=== PATIENT | male | born 1990 | race Caucasian/White ===

== ENCOUNTER 2017-11-22 06:03 | Emergency (ER) | payer BC ==
[~2017-11-22] VITALS: Ht 172.7 cm; Wt 93.0 kg
[2017-11-22 06:20] VITALS: BP 169/90
[2017-11-22] MEDS ORDERED: LORazepam Inj 2mg/ml 1ml IV ONE ×2 (06:30→07:00)
[2017-11-22 06:56] LABS: EOSINOPHILS % (AUTO) 0.1 % (0.0-3.0); HEMATOCRIT 49.3 % (42.0-52.0); HEMOGLOBIN 16.8 G/DL (14.2-18.0); LYMPHOCYTES % (AUTO) 17.9 % (20.0-45.0); MEAN CORPUSCULAR VOLUME 91 FL (80-99); MONOCYTES % (AUTO) 8.2 % (1.0-10.0); NEUTROPHILS % (AUTO) 72.8 % (45.0-75.0); PLATELET COUNT 222 K/UL (150-450); RED BLOOD COUNT 5.42 M/UL (4.70-6.10); RED CELL DISTRIBUTION WIDTH 10.9 % (11.6-14.8); WHITE BLOOD COUNT 12.6 K/UL (4.8-10.8)
[2017-11-22 07:06] LABS: ANION GAP 11 mmol/L (5-15); BLOOD UREA NITROGEN 15 mg/dL (7-18); CALCIUM 9.8 MG/DL (8.5-10.1); CARBON DIOXIDE 27 MMOL/L (21-32); CHLORIDE 101 MMOL/L (98-107); CREATININE 1.4 MG/DL (0.55-1.30); POTASSIUM 3.8 MMOL/L (3.5-5.1); SODIUM 139 MMOL/L (136-145)
--- NOTE | 2017-11-22 07:13 | Emergency Room Report ---
History of Present Illness General Chief Complaint: Substance Abuse Source: Patient Present Illness HPI Patient presents emergency department today with anxiety. Patient states that he is feeling very anxious. He has been taking lots of supplements over-the- counter. He has been taking Kratom. 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 He also has been taking testosterone because he has a history of low testosterone per his report. He denies any fever chest pain or shortness of breath. He states that he feels very anxious and he is tearful. Patient apparently was pacing the room. I did not sleep at all last night. Patient appears very hyper. Patient states that he felt that he was hypoglycemic very anxious all night throughout the night and has been drinking a lot of sugar. He denies any drug use.No other modifying factors. No other associated signs and symptoms. No other complaints were noted. Allergies: Coded Allergies: No Known Allergies (Unverified , 11/22/17) Patient History Past Medical History: other - anxiety Past Surgical History: none Pertinent Family History: none Social History: Reports: drug use - recreational drug use, history of drug abuse in the past Reviewed Nursing Documentation: PMH: Agreed; PSxH: Agreed Nursing Documentation-PMH Past Medical History: No History, Except For Hx Diabetes: No - hypoglycemia Hx Neurological Problems: Yes - anxiety Review of Systems All Other Systems: negative except mentioned in HPI Physical Exam Vital Signs Date Time Temp Pulse Resp B/P (MAP) Pulse Ox O2 Delivery O2 Flow Rate FiO2 11/22/17 06:06 100.6 144 18 165/87 Room Air 100.6 11/22/17 06:20 94 Sp02 EP Interpretation: reviewed, normal General Appearance: alert, other - very anxious Head: atraumatic Eyes: bilateral eye normal inspection ENT: normal ENT inspection, hearing grossly normal, normal voice Neck: normal inspection, full range of motion, supple, no bony tend Respiratory: normal inspection, lungs clear, normal breath sounds, no respiratory distress, no retraction, no wheezing Cardiovascular #1: regular rate, rhythm, no edema Gastrointestinal: normal inspection, normal bowel sounds, non tender, soft, no guarding, no hernia Genitourinary: no CVA tenderness Musculoskeletal: normal inspection, back normal, normal range of motion Neurologic: normal inspection, alert, responsive, speech normal Psychiatric: no suicidal/homicidal ideation, anxious, other - tearful Skin: normal inspection, normal color, no rash Medical Decision Making Diagnostic Impression: Primary Impression: Altered mental state Additional Impression: Substance abuse ER Course Patient presents emergency department today with altered mental status anxiety and has been taking over the counter medication and recreational drugs. Differential considerations include electrolyte abnormality, infectious process , stress reaction just to name a few.Given the severity of the patient's presentation I felt this is a highly complex patient. This patient required extensive workup. Laboratory workup was not impressive except for slightly elevated white blood cell count. Patient also had mild fever as well as tachycardia. Therefore patient was given fluids he was given Ativan for sedation he is monitored emergency department. I first I wanted to admit him to the hospital but then he became more awake declined and actually had normal vital signs time of discharge. Given patient's vital signs normalized I felt that his low-grade temperature was likely secondary to some panel mimics and that his symptoms could be secondary drug abuse. He was advised to stop abusing drugs return the ER for any worsen symptoms as needed. Patient voiced understanding. Labs Test 11/22/17 06:34 11/22/17 08:16 11/22/17 08:50 White Blood Count 12.6 K/UL (4.8-10.8) Red Blood Count 5.42 M/UL (4.70-6.10) Hemoglobin 16.8 G/DL (14.2-18.0) Hematocrit 49.3 % (42.0-52.0) Mean Corpuscular Volume 91 FL (80-99) Mean Corpuscular Hemoglobin 30.9 PG (27.0-31.0) Mean Corpuscular Hemoglobin Concent 34.0 G/DL (32.0-36.0) Red Cell Distribution Width 10.9 % (11.6-14.8) Platelet Count 222 K/UL (150-450) Mean Platelet Volume 6.7 FL (6.5-10.1) Neutrophils (%) (Auto) 72.8 % (45.0-75.0) Lymphocytes (%) (Auto) 17.9 % (20.0-45.0) Monocytes (%) (Auto) 8.2 % (1.0-10.0) Eosinophils (%) (Auto) 0.1 % (0.0-3.0) Basophils (%) (Auto) 1.0 % (0.0-2.0) Sodium Level 139 MMOL/L (136-145) Potassium Level 3.8 MMOL/L (3.5-5.1) Chloride Level 101 MMOL/L (98-107) Carbon Dioxide Level 27 MMOL/L (21-32) Anion Gap 11 mmol/L (5-15) Blood Urea Nitrogen 15 mg/dL (7-18) Creatinine 1.4 MG/DL (0.55-1.30) Estimat Glomerular Filtration Rate > 60 mL/min (>60) Glucose Level 176 MG/DL (74-106) Calcium Level 9.8 MG/DL (8.5-10.1) Total Bilirubin 1.2 MG/DL (0.2-1.0) Direct Bilirubin 0.2 MG/DL (0.0-0.3) Aspartate Amino Transf (AST/SGOT) 42 U/L (15-37) Alanine Aminotransferase (ALT/SGPT) 109 U/L (12-78) Alkaline Phosphatase 96 U/L (46-116) Total Creatine Kinase 275 U/L (26-308) Troponin I 0.007 ng/mL (0.000-0.056) Total Protein 8.7 G/DL (6.4-8.2) Albumin 4.6 G/DL (3.4-5.0) Globulin 4.1 g/dL Lactic Acid Level 1.20 mmol/L (0.4-2.0) Urine Opiates Screen Positive (NEGATIVE) Urine Barbiturates Screen Negative (NEGATIVE) Phencyclidine (PCP) Screen Negative (NEGATIVE) Urine Amphetamines Screen Negative (NEGATIVE) Urine Benzodiazepines Screen Negative (NEGATIVE) Urine Cocaine Screen Negative (NEGATIVE) Urine Marijuana (THC) Screen Positive (NEGATIVE) EKG Diagnostic Results Rate: normal Rhythm: NSR ST Segments: no acute changes Rhythm Strip Diag. Results EP Interpretation: yes Rate: 115 Rhythm: NSR, no PVC's, no ectopy Chest X-Ray Diagnostic Results Chest X-Ray Diagnostic Results : Chest X-Ray Ordered: Yes # of Views/Limited/Complete: 1 View Indication: Chest Pain EP Interpretation: No Impression: No acute disease Last Vital Signs Date Time Temp Pulse Resp B/P (MAP) Pulse Ox O2 Delivery O2 Flow Rate FiO2 11/22/17 06:20 100.6 146 18 169/90 94 Room Air 100.6 Status: improved Disposition: HOME, SELF-CARE Condition: Stable Scripts Unable to Obtain Active Prescriptions or Reported Meds Referrals: NOT CHOSEN IPA/,REFERRING (PCP) Randell Simmons MD Nov 22, 2017 07:13
[2017-11-22 07:15] VITALS: BP 138/75
[2017-11-22 07:16] LABS: ALANINE AMINOTRANSFERASE 109 U/L (12-78); ALBUMIN 4.6 G/DL (3.4-5.0); ALKALINE PHOSPHATASE 96 U/L (46-116); ASPARTATE AMINO TRANSFERASE 42 U/L (15-37); BILIRUBIN,TOTAL 1.2 MG/DL (0.2-1.0)
[2017-11-22 07:18] LABS: BILIRUBIN,DIRECT 0.2 MG/DL (0.0-0.3)
[2017-11-22 08:00] LABS: CREATINE KINASE 275 U/L (26-308)
[2017-11-22 09:30] VITALS: BP 121/62
--- NOTE | 2017-11-22 10:07 | Diagnostic Imaging Report ---
Indication: Dyspnea Comparison: None A single view chest radiograph was obtained. Findings: Patchy prominent pulmonary vascularity and heart size demonstrated. There is interstitial edema. Bones are unremarkable. There is a fixation hardware over the right clavicle noted. IMPRESSION: Suspected pulmonary edema. Correlate clinically
[2017-11-22 10:42] VITALS: BP 129/70
[2017-11-22 11:43] VITALS: BP 116/57
[2017-11-22 13:00] VITALS: BP 116/57
--- NOTE | 2017-11-22 14:45 | Cardiology Report ---
APPROVED REPORT EKG Measurement Heart [id number] Sinus tachycardia Otherwise normal ECG non specific t wave abnormlaity consider electolyte abn
== END 2017-11-22 13:00 | disposition home or self-care (01) ==
LOC: EMR 06:36 → EDBEDREQSVC 10:41 → EDBEDREQ 10:41 → CANBEDREQ 12:32 → EMR 13:00
DX: T50.901A Poisoning by unspecified drugs, medicaments and biological substances, accidental (unintentional), initial encounter (principal); R41.82 Altered mental status, unspecified; Y92.9 Unspecified place or not applicable
CPT/HCPCS: 36415; 71045; 80053; 80307; 82248; 82550; 83605; 84484; 85025; 93005; 96361; 96374; 96375; 99284

== ENCOUNTER 2018-03-23 20:25 | Emergency (ER) | payer BC ==
[~2018-03-23] VITALS: Ht 172.7 cm; Wt 95.3 kg
[2018-03-23 20:40] VITALS: BP 131/68
--- NOTE | 2018-03-23 20:40 | NUR ---
ED Nurse Note: pt walked in c/o left arm rash and pain, pt states he thinks he has skin infection and had it about four days, progressively worsenin. pt states he use iv drug and testosterone injections. Noted red skin lesions on left arm and right arm, tenderness on left arm, no drainage, no swelling, no open wound at this time, will cont monitor.
[2018-03-23] MEDS ORDERED: MIRTAZAPINE45 MG ORAL (20:47)
[2018-03-23] MEDS ORDERED: TESTOSTERONE1.25 GM TD (20:47)
[2018-03-23] MEDS ORDERED: IBUPROFEN600 MG ORAL (21:08)
[2018-03-23] MEDS ORDERED: CLINDAMYCIN HC300 MG ORAL (21:08)
--- NOTE | 2018-03-23 21:08 | Emergency Room Report ---
History of Present Illness General Chief Complaint: Skin Rash/Abscess Source: Patient Present Illness HPI This is a 28-year-old male who is right-hand dominant. He presents with chief complaint is swelling and redness to his left arm. He injected himself daily with amino acid and peptides. Is on not to his vein for the last 5 days. Now with redness streaking up with bicep. No fever chills but no nausea no vomiting. Denies any other complaint. Pain is minimal. Allergies: Coded Allergies: No Known Allergies (Unverified , 11/22/17) Patient History Past Medical History: see triage record Past Surgical History: none Pertinent Family History: none Social History: Denies: smoking Immunizations: other Reviewed Nursing Documentation: PMH: Agreed; PSxH: Agreed Nursing Documentation-PMH Hx Diabetes: No - hypoglycemia Hx Neurological Problems: Yes - anxiety Review of Systems Eye: Denies: eye pain, blurred vision ENT: Denies: ear pain, nose congestion, throat swelling Respiratory: Denies: cough, shortness of breath Cardiovascular: Denies: chest pain, palpitations Gastrointestinal: Denies: abdominal pain, diarrhea, nausea, vomiting Musculoskeletal: Denies: back pain, joint pain Skin: Denies: rash Neurological: Denies: headache, numbness Endocrine: Denies: increased thirst, increased urine Hematologic/Lymphatic: Denies: easy bruising All Other Systems: negative except mentioned in HPI Physical Exam Vital Signs Date Time Temp Pulse Resp B/P (MAP) Pulse Ox O2 Delivery O2 Flow Rate FiO2 03/23/18 20:38 98.4 73 13 131/68 99 Room Air vitals normal Sp02 EP Interpretation: reviewed, normal General Appearance: well appearing, no apparent distress, alert Head: normocephalic, atraumatic Eyes: bilateral eye PERRL, bilateral eye EOMI ENT: hearing grossly normal, normal pharynx Neck: full range of motion, supple, no meningismus Respiratory: chest non-tender, lungs clear, normal breath sounds Cardiovascular #1: regular rate, rhythm, no murmur Gastrointestinal: normal bowel sounds, non tender, no mass, no organomegaly, no bruit, non-distended Musculoskeletal: back normal, gait/station normal, normal range of motion, other - This an indurated area to the left antecubital vein. There is redness streaking up to the mid bicep area. No crepitance. Minimal pain. Neurologic: alert, oriented x3 Psychiatric: mood/affect normal Skin: warm/dry Medical Decision Making Diagnostic Impression: Primary Impression: Superficial thrombophlebitis Qualified Codes: I80.8 - Phlebitis and thrombophlebitis of other sites ER Course Patient with a superficial, brightest with cellulitis. Antibiotic started. He denies any drugs injection other than amino acid. No abscess seen. We'll discharge home. Last Vital Signs Date Time Temp Pulse Resp B/P (MAP) Pulse Ox O2 Delivery O2 Flow Rate FiO2 03/23/18 20:38 98.4 73 13 131/68 99 Room Air Status: improved Disposition: HOME, SELF-CARE Condition: Stable Scripts Ibuprofen* (MOTRIN*) 600 Mg Tablet 600 MG ORAL THREE TIMES A DAY, #30 TAB 0 Refills Prov: Demond Juarez MD 03/23/18 Clindamycin Hcl (CLINDAMYCIN HCL) 300 Mg Capsule 300 MG ORAL THREE TIMES A DAY, #21 CAP Prov: Demond Juarez MD 03/23/18 Additional Instructions: Follow-up with your doctor in 7 days. Warm compress to the area. Return if symptom worsen. Demond Juarez MD Mar 23, 2018 21:08
[2018-03-23 21:10] VITALS: BP 128/88
--- NOTE | 2018-03-23 21:10 | NUR ---
ED Nurse Note: pt discharge instruction provided w/ prescription, pt education done via discussion and handout, pt advised to follow up w/ pcp 2-3days, pt verbalized understanding and agrees with plan, pt wrist band removed, pt ambulatory w/ steady gait, vss, all belongings left w/ pt.
[2018-03-23] MEDS ORDERED: Bactrim-DS 1 tab ORAL ONE (21:15)
== END 2018-03-23 21:10 | disposition home or self-care (01) ==
LOC: EMR 21:10
DX: I80.8 Phlebitis and thrombophlebitis of other sites (principal); F41.9 Anxiety disorder, unspecified
CPT/HCPCS: 99282